=== PATIENT | male | born 1960 | race Caucasian/White ===

== ENCOUNTER 2019-02-11 12:35 | Emergency (ER) | payer BC, SELFPAY ==
[2019-02-11 12:36] VITALS: BP 165/111; PULSE 88; RESP 20; TEMP 36.3; O2SAT 98; BMI 36.7
--- NOTE | 2019-02-11 13:49 | RAD_ITS ---
STUDY: X-RAY - LEFT HAND, ATTENTION THIRD FINGER REASON FOR EXAM: Male, 58 years old. Pain and swelling. TECHNIQUE: 3 view(s) of the finger were obtained. COMPARISON: None. FINDINGS: Normal metacarpal head. Normal metacarpophalangeal joint. Normal proximal phalanx. Normal middle phalanx. Normal distal phalanx. Normal proximal interphalangeal joint. Normal distal interphalangeal joint. Diffuse soft tissue swelling. RAD/Finger(s) Min 2 Views IMPRESSION: Diffuse soft tissue swelling. Electronically Signed: Pavel Echeverria, at 14:30 EDT , Service support ,
[2019-02-11] MEDS: Diphth,Pertuss(Acell),Tet Vac 0.5 ML Vial IM (14:22)
--- NOTE | 2019-02-11 15:53 | ED.VIS.GEN ---
History of Present Illness Chief Complaint: Cellulitis Informant: Patient Onset: Days - 5+ days Context: Sudden Onset Timing: Continuous Quality: Redness, swelling, pain and drainage Location: DIP joint left long finger Current Severity: Moderate Maximum Severity: Severe Worsened by: After poking the digit with a needle Relieved by: Nothing Associated Symptoms: Denies paresthesia, anesthesia motor weakness and read narrative Narrative: Patient is a 58-year-old [id number] male who [facility] to [facility] with injury to his left long finger 3 weeks ago. He was working with wood. He had an abrasion on the ulnar side. He reports pain, swelling redness and white material under the skin for the past 5 days. He denies history rheumatic fever, murmur, SBE, IV drug use or being immune suppressed. He denies any antibiotic allergies. He denies history of diabetes. Prior similar symptoms: No Recent Illness/Hospitalization: No - Past Medical History (1) No significant past medical history Status: Acute Past Medical History - Allergies and Home Meds Allergies/Adverse Reactions: Allergies No Known Allergies Allergy (Verified 02/11/19 14:00) Primary Care Physician: Care Physician,No Primary [Primary Care Provider] - Lives: Spouse/ Significant Other Smoking Status: Never smoker Alcohol: None Review of Systems General: Denies: Chills, Fever, Malaise, Subjective, Sweats, Weight loss, - Musculoskeletal: Reports: Swelling, Extremity Pain. Denies: Back pain Skin: Reports: Rash, Abscess, Wounds. Denies: Abrasions Neurological: Denies: Weakness, Parasthesia, Numbness Endocrine: Denies: Polyuria, Polydipsia Hematologic: Denies: Easy bruising, Easy bleeding Allergy: Denies: Uticaria, Swelling of the mouth Physical Exam Vital Signs/Narrative: Vital Signs Temp Pulse Resp BP Pulse Ox 02/11/19 12:36 97.3 F L 88 20 H 165/111 H 98 Inital Vital Signs reviewed: Yes General: Well nourished, Well developed, Obese, No Acute Distress Head: Normocephalic, Atraumatic Eyes: Perrl, EOMI ENT: Moist mucous membranes, No rhinorrhea Neck: Supple, Nontender Cardiovascular: Regular rate, Regular rhythm, No murmurs Respiratory: No distress, CTA bilaterally, Chest nontender Abdomen: Nontender Extremities: No edema, Tenderness, - - No pain of the DIP joint with passive flexion extension. There is no subungual hematoma noted. There is a wound noted ulnar side left long finger. Clinically he does not have a flexor tenosynovitis or extensor tenosynovitis. Capillary refill is normal. Sensation is normal. Skin: Normal color, Rash Neurological: Alert, Oriented x3, Cranial nerves II-XII grossly intact, Normal Strength, Normal Sensation Psychological: Normal affect, Normal Mood Diagnostic/Tx/Re-eval Chest X-Ray - ED: Read by ED Physician, - - X-ray was obtained and reveals soft tissue swelling with fluid on the radial side of the DIP joint. There is a defect noted distal middle phalanx ulnar side. This was not noted by radiologist. He agrees this may represent osteomyelitis. Impressions Finger X-Ray 02/11/19 13:49 IMPRESSION: Diffuse soft tissue swelling. Electronically Signed: Pavel Juwan, at 14:30 EDT , Service support , ADDENDUM: 02/11/19 1514 02/11/19 13:49 Finger(s) Min 2 Views [RAD] Stat - Medical Decision Making Patient with infection. X-ray was obtained to evaluate for osteomyelitis. Because of the defect case was discussed with Ortho, Dr.Joseph Fajardo follow-up with Ortho and infectious disease. Patient was prescribed 14-day course of cephalexin and Bactrim. Culture was sent. And infectious disease. Procedures Procedure(s): The digit was prepped draped sterile manner. Digital block was placed. Incision made ulnar side DIP joint. Thick purulent material noted. Swelling noted radial volar side and concerning for felon. Incision was made on the radial side. Purulent material was noted blunt dissection resulted in more purulent material. The 2 incisions did not connect. Wick was placed to keep both wounds open. He received his first dose of anabolic's in the department. ED Disposition - Plan for ED Patient: Disposition: Home or Assisted Living Diagnosis: Osteomyelitis middle phalanx left long, Abscess of left middle finger, Felon of finger of left hand Instructions: Discharge Instructions for Cellulitis, ED Abscess IandD Prescriptions: Oxycodone HCl/Acetaminophen [Percocet 5/325] 1 tab PO Q6H PRN PRN 3 Days #12 tab PRN Reason: Pain Smz/Tmp Ds [Bactrim Ds] 1 tab PO BID #28 tab Cephalexin [Keflex] 500 mg PO 4X/DAY #56 cap Referrals: Care Physician,No Primary [Primary Care Provider] - Abel Mitchell DO [STAFF PHYSICIAN] - 2 Days for wound check Osvaldo Lobato MD [STAFF PHYSICIAN] - 3-5 Days Additional Instructions: Do not remove dressing for 24 to 48 hours. Keep dressing clean and dry.
[2019-02-11] MEDS: oxyCODONE 5 MG Tablet PO (16:19)
[2019-02-11] MEDS: Cephalexin 250 MG Capsule 500 MG PO (16:19)
[2019-02-11] MEDS: Smz/Tmp Ds Tablet 1 TABLET PO (16:20)
[2019-02-11 16:24] VITALS: BP 180/107; PULSE 71; RESP 16
== END 2019-02-11 16:25 | disposition home or self-care (01) ==
PROVIDERS: Emergency Provider Emergency Medicine
DX: L03.012 Cellulitis of left finger (principal); L02.512 Cutaneous abscess of left hand; M86.9 Osteomyelitis, unspecified; E66.9 Obesity, unspecified
CPT/HCPCS: 26011; 10060; 73140; 87070; 87205; 90715; 99284

== ENCOUNTER 2019-10-10 06:40 | Emergency (ER) | payer BC, SELFPAY ==
[2019-02-25 08:35] VITALS: BMI 36.7
[2019-10-10 06:41] VITALS: BP 157/124; PULSE 108; RESP 18; TEMP 36.6; O2SAT 99; BMI 36.6
--- NOTE | 2019-10-10 06:54 | RAD_ITS ---
STUDY: X-RAY - RIGHT ANKLE REASON FOR EXAM: Pain, possibly rolled ankle. TECHNIQUE: 3 view(s) of the ankle. COMPARISON: None. FINDINGS: Normal visualized distal tibia and fibula. Normal medial and lateral malleoli. Normal tibiotalar articulation and ankle mortise. Normal visualized talus and calcaneus. The visualized subtalar, talonavicular, calcaneocuboid and tarsal articulations are normal. There is soft tissue swelling. There is vascular calcification. RAD/Ankle min 3 Views IMPRESSION: Soft tissue swelling. No demonstrated fracture. Electronically Signed: Bg Aguirre MD at 7:43 EST Tel , Service support ,
--- NOTE | 2019-10-10 06:54 | RAD_ITS ---
STUDY: X-RAY - LEFT KNEE REASON FOR EXAM: Increased swelling, history of gout, no specific injury. TECHNIQUE: 4 view(s) of the knee. COMPARISON: None. FINDINGS: Normal visualized distal femur. Normal visualized proximal tibia and fibula. Normal proximal tibiofibular articulation. Normal medial femorotibial compartment. Normal lateral femorotibial compartment. There is mild lateral subluxation of the patella. There is a joint effusion. RAD/Knee 4 or More Views IMPRESSION: Mild lateral subluxation of the patella. Joint effusion. Electronically Signed: Bg Aguirre MD at 7:39 EST Tel , Service support ,
[2019-10-10] MEDS: Ketorolac 15 MG/ML Vial IV (07:02)
[2019-10-10 07:05] LABS: Absolute Lymphocyte Count 1.83 X10^3/uL (0.83-4.51); Absolute Neutrophil Count 9.7 X10^3/uL (2.0-7.7); Basophil# 0.09 X10^3/uL; Basophil% 0.7 % (0-1); Eosinophil# 0.13 X10^3/uL; Hematocrit 44.3 % (40-54); Hemoglobin 14.2 g/dL (13.0-16.5); Lymphocyte # 1.83 X10^3/ul (4.0); Lymphocyte % 14.2 % (19-41); Mean Corp Hgb Conc 32.1 g/dL (32-36); Mean Corpuscular Hgb 28.3 pg (27.0-32.0); Mean Corpuscular Volume 88.2 fL (80-94); Mean Platelet Vol. 9.5 fl (6.2-12.0); Monocyte% 8.5 % (0-10); NRBC Flagged by Analyzer 0 % (0-5); Neutrophil # 9.66 X10^3/uL (2.7-7.7); Neutrophil % 75.1 % (47-70); Platelet Count 369 K/mm3 (150-450); RBC Distribution Width CV 13.4 % (11.6-14.6); RBC Distribution Width SD 43.2 fl (35.1-43.9); Red Blood Count 5.02 M/mm3 (4.6-6.2); White Blood Count 12.9 K/mm3 (4.4-11.0)
[2019-10-10 07:20] LABS: Anion Gap 8 (5-15); BUN 10 mg/dL (7-18); BUN/Creat Ratio 9.9 RATIO (10-20); Calcium,Total 9.4 mg/dL (8.5-10.1); Chloride 101 mmol/L (98-107); Creatinine, Serum 1.01 mg/dL (0.70-1.30); EST Glomerular Filtration Rate 81 mL/min (>60); Est Glom Filt Rate - Afr Amer 98 mL/min (>60); Estimated Creatinine Clearance 83.32 ml/min; Glucose 151 mg/dL (74-106); Sodium Level 134 mmol/L (136-145)
--- NOTE | 2019-10-10 07:45 | ED.DCSUM_ITS ---
History of Present Illness Chief Complaint: Lower Extremity Injury Informant: Patient, Significant Other Onset: Days Context: Sudden Onset - Onset of discomfort Thursday. He recently completed a course of medication for gout. Timing: Continuous Quality: Pain and swelling Location: Right ankle and left knee Current Severity: Moderate Maximum Severity: Severe Worsened by: Movement of either joint Relieved by: Improve at rest Associated Symptoms: None Narrative: Patient is a middle-age male who has history of gout who presents with atraumatic left knee and right ankle pain. He recently completed a course of medication for gout. He denies fever, chills night sweats. He denies weight gain or weight loss. There is no history of trauma to his knowledge. He has injured his ankles in the past. He denies symptoms of claudication. He is not noted any redness of either joint. He does not believe this is gout. Prior similar symptoms: No Recent Illness/Hospitalization: Yes - Past Medical History (1) Gout Status: Acute Past Medical History - Allergies and Home Meds Allergies/Adverse Reactions: Allergies No Known Allergies Allergy (Verified 10/10/19 06:49) Primary Care Physician: Care Physician,No Primary [Primary Care Provider] - Prior records reviewed: Yes Surgical History: noncontributory Lives: Spouse/ Significant Other Smoking Status: Former smoker Alcohol: None Drugs: None Review of Systems General: Denies: Chills, Fever, Malaise, Subjective, Sweats, Weight loss, - ENT: Denies: Rhinorrhea, Sore throat Cardiovascular: Denies: Chest pain, Palpitations Respiratory: Denies: Dyspnea, Cough, Dyspnea on exertion Gastrointestinal: Denies: Abdominal pain, Nausea, Vomiting Musculoskeletal: Reports: Swelling, Extremity Pain. Denies: Myalgias, Arthralgias, Neck pain, Back pain Skin: Denies: Rash, Wounds Neurological: Denies: Weakness, Parasthesia Hematologic: Denies: Easy bruising, Easy bleeding Physical Exam Vital Signs/Narrative: Vital Signs Temp Pulse Resp BP Pulse Ox 10/10/19 06:41 97.8 F 108 H 18 157/124 H 99 Inital Vital Signs reviewed: Yes General: Well nourished, Well developed, Obese, Acute Distress Head: Normocephalic, Atraumatic Eyes: Perrl, EOMI. Negative for: Pale conjunctiva, Scleral icterus ENT: Moist mucous membranes, No rhinorrhea Neck: Supple, Nontender Cardiovascular: Regular rate, Regular rhythm, No murmurs, Normal S1, Normal S2 Respiratory: No distress, CTA bilaterally Extremities: No edema, Tenderness, - - There is swelling of the right ankle. There may be a small effusion. There is no evidence of trauma. There is no pain patient over the lateral or medial malleolus. There is no pain the patient over the base of the fifth metatarsal. DP pulses palpable. PT pulses diminished. There is stigmata of peripheral arterial disease. The left knee is markedly swollen with an effusion. There is no laxity of the MCL or LCL. Unable to perform Teressa or modified Yemi's test. Passive flexion extension of the left knee causes significant pain. Passive plantar and dorsiflexion of the right ankle causes increased pain.. Negative for: Nontender Skin: Normal color, No rash Neurological: Alert, Oriented x3, Cranial nerves II-XII grossly intact, Normal Strength, Normal Sensation. Negative for: Normal Gait Psychological: Normal affect Diagnostic/Tx/Re-eval Chest X-Ray - ED: Read by ED Physician, - - View x-ray of the right ankle reveals calcification of the arteries. There is soft tissue swelling. There may be a small effusion. There is no evidence of fracture or subluxation. 4 view x-ray of the knee reveals an effusion. There is no foreign body noted. There is no fracture, subluxation or dislocation. Impressions Ankle X-Ray 10/10/19 06:54 IMPRESSION: Soft tissue swelling. No demonstrated fracture. Electronically Signed: Bg Aguirre MD at 7:43 EST Tel , Service support , Knee X-Ray 10/10/19 06:54 IMPRESSION: Mild lateral subluxation of the patella. Joint effusion. Electronically Signed: Bg Aguirre MD at 7:39 EST Tel , Service support , 10/10/19 06:54 Ankle min 3 Views [RAD] Stat Knee 4 or More Views [RAD] Stat Laboratory Results 10/10/19 10/10/19 07:00 07:00 WBC 12.9 H RBC 5.02 Hgb 14.2 Hct 44.3 MCV 88.2 MCH 28.3 MCHC 32.1 RDW Std Deviation 43.2 RDW Coeff of Anya 13.4 Plt Count 369 MPV 9.5 Immature Gran % (Auto) 0.500 Neut % (Auto) 75.1 H Lymph % (Auto) 14.2 L Starke % (Auto) 8.5 Eos % (Auto) 1.0 Baso % (Auto) 0.7 Absolute Neuts (auto) 9.7 H Absolute Lymphs (auto) 1.83 Nucleated RBC % 0 Sodium 134 L Potassium 4.0 Chloride 101 Carbon Dioxide 25.0 Anion Gap 8 BUN 10 Creatinine 1.01 Estim Creat Clear Calc 83.32 Est GFR (MDRD) Af Amer 98 Est GFR (MDRD) Non-Af 81 BUN/Creatinine Ratio 9.9 L Glucose 151 H Calcium 9.4 White count is slightly elevated. This is a nonspecific marker. Glucose is elevated 151. He denies history of diabetes. - Medical Decision Making With history of no trauma and prior history of gout suspect this is secondary to acute gouty attack. Patient was initially medicated with morphine since his renal functions unknown. Patient was reassessed at 0825. He reports significant improvement. He was discharged with prescription for prednisone and instructed follow-up with his doctor. 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 Also you will need to follow-up for elevated blood sugar to evaluate for new onset diabetes.
[2019-10-10 07:51] VITALS: BP 157/124; PULSE 108; RESP 18; TEMP 36.6; O2SAT 99
[2019-10-10 08:00] VITALS: BP 157/124; PULSE 108; RESP 18; TEMP 36.6; O2SAT 99
[2019-10-10] MEDS: predniSONE 20 MG Tablet 60 MG PO (08:03)
--- NOTE | 2019-10-10 08:50 | ED.DCSUM_ITS ---
- ER Visit Summary Date of Service: 10/10/19 Chief Complaint: [] History of Present Illness: The patient is a 58 M [] Physical Examination: [] Test Results: [] Emergency Department Course and Treatment: [] Treatment Plan: [] Disposition: [] Impression: [] This note was generated with [employer] dictation software. 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 Also you will need to follow-up for elevated blood sugar to evaluate for new onset diabetes.
--- NOTE | 2019-10-10 08:51 | ED.DCSUM_ITS ---
- ER Visit Summary Date of Service: 10/10/19 Chief Complaint: [] History of Present Illness: The patient is a 58 M [] Physical Examination: [] Test Results: [] Emergency Department Course and Treatment: [] Treatment Plan: [] Disposition: [] Impression: [] This note was generated with [employer] dictation software. 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 Also you will need to follow-up for elevated blood sugar to evaluate for new onset diabetes.
[2019-10-10 09:05] VITALS: RESP 18
== END 2019-10-10 09:06 | disposition home or self-care (01) ==
PROVIDERS: Emergency Provider Emergency Medicine
DX: M10.39 Gout due to renal impairment, multiple sites (principal); R73.9 Hyperglycemia, unspecified; Z87.891 Personal history of nicotine dependence; E66.9 Obesity, unspecified
CPT/HCPCS: 73564; 73610; 80048; 85025; 96374; 99283; A4216

== ENCOUNTER → 2024-06-10 | Outpatient (CLI) | payer BC, SELFPAY ==
[2024-06-10 11:10] LABS: Absolute Lymphocyte Count 2.76 X10^3/uL (0.83-4.51); Basophil# 0.13 X10^3/uL; Basophil% 1.1 % (0-1); Eosinophil# 0.25 X10^3/uL; Eosinophils% 2.2 % (0-5); Hematocrit 44.1 % (40-54); Hemoglobin 13.9 g/dL (13.0-16.5); Lymphocyte # 2.76 X10^3/ul (0.83-4.51); Lymphocyte % 24.3 % (19-41); Mean Corp Hgb Conc 31.5 g/dL (32-36); Mean Corpuscular Volume 92.1 fL (80-94); Mean Platelet Vol. 10.8 fl (6.2-12.0); Monocyte# 1.17 X10^3/uL; Monocyte% 10.3 % (0-10); NRBC Flagged by Analyzer 0 % (0-5); Neutrophil # 6.99 X10^3/uL (2.7-7.7); Neutrophil % 61.6 % (47-70); Platelet Count 254 K/mm3 (150-450); RBC Distribution Width CV 13.6 % (11.6-14.6); RBC Distribution Width SD 46.1 fl (35.1-43.9); Red Blood Count 4.79 M/mm3 (4.6-6.2); White Blood Count 11.4 K/mm3 (4.4-11.0)
[2024-06-10 11:54] LABS: ALB/GLOB Ratio 0.8 RATIO (0.9-2.4); AST(SGOT) 38 U/L (15-37); Alanine Aminotransfer ALT/SGPT 49 U/L (16-61); Albumin, Serum 3.4 g/dL (3.2-5.0); Alkaline Phosphatase 94 U/L (45-117); Anion Gap 6 (5-15); BUN 11 mg/dL (7-18); BUN/Creat Ratio 12.8 RATIO (10-20); Calcium,Total 9.5 mg/dL (8.5-10.1); Chloride 105 mmol/L (98-107); Cholesterol 278 mg/dL (200); Creatinine, Serum 0.86 mg/dL (0.70-1.30); EST Glomerular Filtration Rate 95 mL/min (>60); Est Glom Filt Rate - Afr Amer 115 mL/min (>60); Globulin 4.1 g/dL (2.2-4.2); Glucose 105 mg/dL (74-106); High Density Lipoprotein 64 mg/dL; PSA,Total - Annual Screen 1.34 ng/mL (0.00-4.00); Potassium 4.4 mmol/L (3.5-5.1); Protein, Total 7.5 g/dL (6.4-8.2); Sodium Level 137 mmol/L (136-145); Thyroid Stim Hormone (TSH) 0.828 uIU/mL (0.358-3.740); Triglycerides 151 mg/dL; Uric Acid 8.6 mg/dL (3.5-7.2); Very Low Density Lipoprotein 30 mg/dL (5-40)
[2024-06-10 12:13] LABS: Hepatitis C Antibody Non-Reactive (Nonreactive)
== END | disposition home or self-care (01) ==
LOC: POLAB3 10:38
PROVIDERS: PCP Family Medicine Geriatric Medicine; Visit Provider Family Medicine Geriatric Medicine
DX: Z12.5 Encounter for screening for malignant neoplasm of prostate (principal); I10 Essential (primary) hypertension; Z13.89 Encounter for screening for other disorder; M10.9 Gout, unspecified; E78.5 Hyperlipidemia, unspecified
CPT/HCPCS: 36415; 80053; 80061; 84153; 84443; 84550; 85025; 86803; G0103

== ENCOUNTER → 2024-07-11 | Outpatient (CLI) | payer SELFPAY | END | disposition home or self-care (01) | PROVIDERS: PCP Family Medicine Geriatric Medicine; Referring Provider Family Medicine Geriatric Medicine; Visit Provider Family Medicine Geriatric Medicine | DX: R68.83 Chills (without fever) (principal) | CPT/HCPCS: 87631 ==

== ENCOUNTER → 2024-11-23 | Outpatient (CLI) | payer BC, SELFPAY ==
[2024-11-23 10:34] LABS: Erythrocyte Sedimentation Rate 49 mm/hr (0-20)
[2024-11-23 10:36] LABS: Absolute Lymphocyte Count 2.17 X10^3/uL (0.83-4.51); Absolute Neutrophil Count 8.5 X10^3/uL (2.0-7.7); Basophil# 0.11 X10^3/uL; Basophil% 0.9 % (0-1); Eosinophil# 0.21 X10^3/uL; Eosinophils% 1.7 % (0-5); Hematocrit 45.7 % (40-54); Hemoglobin 14.8 g/dL (13.0-16.5); Lymphocyte # 2.17 X10^3/ul (0.83-4.51); Lymphocyte % 17.8 % (19-41); Mean Corp Hgb Conc 32.4 g/dL (32-36); Mean Corpuscular Hgb 29.8 pg (27.0-32.0); Mean Platelet Vol. 10.6 fl (6.2-12.0); Monocyte# 1.21 X10^3/uL; Monocyte% 9.9 % (0-10); NRBC Flagged by Analyzer 0 % (0-5); Neutrophil # 8.45 X10^3/uL (2.7-7.7); Neutrophil % 69.2 % (47-70); Platelet Count 296 K/mm3 (150-450); RBC Distribution Width SD 47.7 fl (35.1-43.9); Red Blood Count 4.97 M/mm3 (4.6-6.2); White Blood Count 12.2 K/mm3 (4.4-11.0)
[2024-11-23 11:12] LABS: Anion Gap 14 (5-15); BUN 16 mg/dL (4-19); BUN/Creat Ratio 20.4 RATIO (10-20); Calcium,Total 9.6 mg/dL (7.6-11.0); Carbon Dioxide 22.7 mmol/L (21.0-32.0); Chloride 100 mmol/L (98-108); EST Glomerular Filtration Rate 100 (>60); Glucose 126 mg/dL (70-99); Potassium 4.5 mmol/L (3.3-5.1); Sodium Level 137 mmol/L (133-145); Uric Acid 3.2 mg/dL (3.5-7.2)
== END | disposition home or self-care (01) ==
LOC: POLAB3 10:01
PROVIDERS: PCP Family Medicine Geriatric Medicine; Visit Provider Family Medicine Geriatric Medicine
DX: M10.9 Gout, unspecified (principal)
CPT/HCPCS: 36415; 80048; 84550; 85025; 85652; 86140

== ENCOUNTER → 2025-04-13 | Outpatient (CLI) | payer BC, SELFPAY ==
--- NOTE | 2025-04-13 11:33 | RAD_ITS ---
PROCEDURE: SHOULDER MIN 2 VIEWS 04/13/2025 REASON FOR EXAM: PAIN IN LEFT SHOULDER TECHNIQUE: SHOULDER MIN 2 VIEWS Laterality: Left. COMPARISON: None. RAD/Shoulder min 2 Views IMPRESSION: Mild left acromioclavicular joint degenerative changes are seen. The left glenohumeral joint is unremarkable in appearance. No acute fracture or dislocation is seen. If clinical concern persists, short-term follow-up imaging may be obtained to r ule out a currently occult fracture. Reading Location: [facility]
--- NOTE | 2025-04-13 11:33 | RAD_ITS ---
PROCEDURE: SHOULDER MIN 2 VIEWS 04/13/2025 REASON FOR EXAM: PAIN IN LEFT SHOULDER TECHNIQUE: SHOULDER MIN 2 VIEWS Laterality: Left. COMPARISON: None. RAD/Shoulder min 2 Views IMPRESSION: Mild left acromioclavicular joint degenerative changes are seen. The left glenohumeral joint is unremarkable in appearance. No acute fracture or dislocation is seen. If clinical concern persists, short-term follow-up imaging may be obtained to r ule out a currently occult fracture. Reading Location: [facility]
== END | disposition home or self-care (01) ==
LOC: RAD 11:28
PROVIDERS: PCP Family Medicine Geriatric Medicine; Referring Provider Family Medicine Geriatric Medicine; Visit Provider Family Medicine Geriatric Medicine
DX: M25.512 Pain in left shoulder (principal)
CPT/HCPCS: 73030

== ENCOUNTER → 2025-06-14 | Outpatient (CLI) | payer BC, SELFPAY ==
[2025-06-14 11:11] LABS: Hematocrit 43.9 % (40-54); Hemoglobin 14.3 g/dL (13.0-16.5); Immature Granulocytes Count 0.080 X10^3/uL (0.0-0.0); Mean Corp Hgb Conc 32.6 g/dL (32-36); Mean Corpuscular Volume 91.3 fL (80-94); Mean Platelet Vol. 10.5 fl (6.2-12.0); NRBC Flagged by Analyzer 0 % (0-5); Platelet Count 337 K/mm3 (150-450); RBC Distribution Width CV 14.3 % (11.6-14.6); RBC Distribution Width SD 47.8 fl (35.1-43.9); Red Blood Count 4.81 M/mm3 (4.6-6.2); White Blood Count 12.8 K/mm3 (4.4-11.0)
[2025-06-14 12:09] LABS: AST(SGOT) 29 U/L (<=37); Alanine Aminotransfer ALT/SGPT 31 U/L (<=46); Albumin, Serum 4.1 g/dL (3.4-4.8); Alkaline Phosphatase 120 U/L (40-129); Anion Gap 11 (5-15); BUN 17 mg/dL (4-19); BUN/Creat Ratio 19.7 RATIO (10-20); Calcium,Total 10.0 mg/dL (7.6-11.0); Carbon Dioxide 25.1 mmol/L (21.0-32.0); Chloride 101 mmol/L (98-108); Globulin 3.1 g/dL (2.2-4.2); Glucose 107 mg/dL (70-99); PSA,Total - Annual Screen 1.00 ng/mL (0.02-4.00); Potassium 4.6 mmol/L (3.3-5.1)
[2025-06-14 16:55] LABS: Uric Acid 3.2 mg/dL (3.5-7.2)
[2025-06-14 18:46] LABS: Xtra Tube Kwok EXTRA TUBE
== END | disposition home or self-care (01) ==
LOC: POLAB3 10:46
PROVIDERS: PCP Family Medicine Geriatric Medicine; Visit Provider Family Medicine Geriatric Medicine
DX: Z12.5 Encounter for screening for malignant neoplasm of prostate (principal); I10 Essential (primary) hypertension; M10.9 Gout, unspecified
CPT/HCPCS: 36415; 80053; 84153; 84443; 84550; 85025; G0103